=== PATIENT | female | born 1965 | race Caucasian/White ===

== ENCOUNTER 2017-11-04 09:25 | Outpatient (RCR) | payer BC, SELFPAY ==
--- NOTE | 2017-11-04 10:40 | HMH.PTOPEV ---
Rehab Outpatient Evaluation Rehab OP Evaluation Start: 11/04/17 10:26 Freq: Status: Active Protocol: Document 11/04/17 10:26 RMARSHALL (Rec: 11/04/17 10:39 [facility] [id number]) Electronically Signed By Mackenzie Ndiaye OT 11/04/17 10:26 Outpatient Therapy Subjective History Subjective History Pt is a 52 year old female who reports to therapy for initial evaluation to L wrist. Pt was dx with carpal tunnel in left wrist in August of 2017. Pt reports she wears a L wrist cock up splint at night, but continues to have pain and numbness/tingling in left hand/fingers. Pt works at [employer] and her job duties require a significant amount of typing and writing. Pt demonstrates with decreased AROM in left wrist; strength is slightly decreased. Pt will continue to be seen in order to address these deficits. Chief Complaint Pain Stiff Symptom Type Ache Throb Sharp Numbness Tingling Shooting Symptoms Relieved By Nothing Symptoms Aggravated By Physical Activity Lifting Prior Functional Limitations None Current Functional Limitations Reaching Lifting Housework Desk Work/Reading Sleeping Recreation Activity Symptom Description Intermittent Activity Dependent Level of pain today (0-10) 4 Pain scale - at its best (0-10) 2 Pain scale - at its worst (0-10) 8 Wrist/Hand Eval Palpation Tenderness/Visual Exam Wrist pain left tenderness wrist exam standard left Wrist/Hand Palpation Findings Tenderness Wrist Range of Motion Wrist Extension Active Range of Motion ( 28 degrees) Wrist Flexion Active Range of Motion ( 45 degrees) Wrist Radial Deviation Active Range of 10 Motion (degrees) Wrist Ulnar Deviation Active Range of 10 Motion (degrees)
== END 2017-11-04 09:26 | disposition home or self-care (01) ==
LOC: OT 09:25
PROVIDERS: PCP Nurse Practitioner; Visit Provider Family Medicine
DX: G56.02 Carpal tunnel syndrome, left upper limb (principal)
CPT/HCPCS: 97035; 97140; 97165

== ENCOUNTER → 2017-12-04 12:40 | Outpatient (CLI) | payer BC, SELFPAY ==
--- NOTE | 2017-12-04 13:07 | MM_ITS ---
MM Dig mamm BI DX w/CAD, US breast RT complete, US breast LT complete COMPARISON: 05/21/2017, 06/03/2017 INDICATION: Follow-up abnormal mammogram ORDERING PHYSICIAN: See Davenport MD PATIENT AGE: 52 years TECHNIQUE: Standard images performed lungs problem-solving views. FINDINGS: Right mammogram: Multiple nodular opacity some of which contain coarse calcifications consistent with fibroadenomas.. The nodule in the upper outer aspect of the right breast measuring approximately 9 mm is not significant changed. Calcified nodules are unchanged. There is a benign-appearing 5 mm nodular density in the retroareolar region which is unchanged and may be due to small cyst. Left breast: Asymmetric density in the lateral aspect of the left breast appears to compress out as fibroglandular tissue. Benign-appearing nodules are present in the axilla. Right breast ultrasound with axilla: 5 mm hypoechoic nodule at 6:00 near the nipple. 1 x 0.7 cm hypoechoic nodule with enhanced through transmission of sound at 10:00 once again noted unchanged and may be due to a fibroadenoma and is stable mammographically dating back to 08/27/2012. 5 mm hypoechoic nodule behind the nipple Left breast ultrasound: Scattered hypoechoic areas some which may be due to fibroglandular tissue and small cyst. These are not significantly changed.. 4 mm hypoechoic nodule at 12:00, 5 amount hypoechoic nodule at 2:00, 4 mm hypoechoic nodule 1:00. No suspicious masses evident IMPRESSION: No evidence of malignancy. Overall stable appearance of the breast mammographically and sonographically BI-RADS Category: 2 Benign Finding(s) RECOMMENDED FOLLOW-UP: 6M - 6 MONTH FOLLOW-UP Recommend screening mammogram bilaterally in 6 months (A letter has been sent to the patient regarding results of the study.)
== END ==
PROVIDERS: PCP Family Medicine; Visit Provider Family Medicine
DX: Z09 Encounter for follow-up examination after completed treatment for conditions other than malignant neoplasm (principal)
CPT/HCPCS: 76641; 77066

== ENCOUNTER → 2018-11-27 15:20 | Outpatient (CLI) | payer BC, SELFPAY ==
--- NOTE | 2018-11-27 15:47 | MM_ITS ---
MM Dig screening mamm BI w/CAD CAD Screening COMPARISON: Digital mammograms with CAD 05/21/2017 and additional views of each breast 06/03/2017 and digital mammograms with CAD 12/04/2017 INDICATION: There is a history of breast cancer in 2 sisters one diagnosed at age 49 the other at age 70 TECHNIQUE: Standard CC and MLO images were obtained. R2 CAD reviewed. FINDINGS: Diffuse heterogenic fibroglandular densities are seen in each breast. There are stable nodular densities in each breast along with stable benign-appearing micro and macrocalcifications. The stable nodular densities are likely fibroadenomas as suggested previously. There are mole markers on each breast. There is no new or suspicious lesion in either breast. IMPRESSION: Heterogenic breast parenchyma somewhat lessening the sensitivity mammography with the findings are stable BI-RADS Category: 2 Benign Finding(s) RECOMMENDED FOLLOW-UP: 1YR - 1 YEAR FOLLOW-UP (A letter has been sent to the patient regarding results of the study.)
== END ==
PROVIDERS: PCP Family Medicine; Visit Provider Family Medicine
DX: Z12.31 Encounter for screening mammogram for malignant neoplasm of breast (principal)
CPT/HCPCS: 77067

== ENCOUNTER → 2019-06-21 16:07 | Outpatient (CLI) | payer BC, SELFPAY ==
--- NOTE | 2019-06-21 16:11 | XR_ITS ---
PROCEDURE: XR SHOULDER RT MIN 2V CLINICAL INDICATION: RT SHOULDER PAIN Pain, decreased range of motion COMPARISON: No exams were available for comparison FINDINGS: Mild osteoarthritic changes are present at the acromioclavicular joint and glenohumeral joint with subacromial stenosis. No fracture or dislocation. No lytic or blastic change IMPRESSION: Osteoarthritis with subacromial stenosis Dictated by: Vasquez Garcia MD 06/22/2019 07:09 Electronically signed by Vasquez Garcia MD in [place] 06/22/2019 07:09
== END ==
PROVIDERS: PCP Family Medicine; Visit Provider Family Medicine
DX: M25.511 Pain in right shoulder (principal)
CPT/HCPCS: 73030

== ENCOUNTER → 2019-12-10 07:32 | Outpatient (CLI) | payer BC, SELFPAY ==
--- NOTE | 2019-12-10 08:00 | MM_ITS ---
PROCEDURE: MM DIG SCREENING MAMM BI W/CAD CLINICAL INDICATION: SCREENING There is a history of breast cancer patient's 2 sisters both diagnosed before menopause. COMPARISON: [facility] DIG MAMM- ABIEL ADD VIEWS W/CAD from 06/03/2017 [facility] MM Dig mamm BI DX w/CAD from 12/04/2017 [facility] MM Dig screening mamm BI w/CAD from 11/27/2018 TECHNIQUE: Standard CC and MLO images and 3D Tomosynthesis was obtained. R2 CAD reviewed. FINDINGS: Mild to moderate fibroglandular densities are seen in the central portions of both breasts. There are stable nodular appearing densities with smooth borders in each breast. There is a mole marker right breast. There are 2 stable areas of micro and right breast. Kirby images were reviewed and are helpful confirming the stability of the benign-appearing nodular densities in each breast. There is no new or suspicious lesion in either breast and no suspicious microcalcifications. IMPRESSION: Stable exam with no suspicious lesions seen BI-RAD Category: 2 Benign Finding(s) FOLLOW-UP: 1YR 1 Year Follow-up (A letter has been sent to the patient regarding results of the study.) Dictated by: Dr. Piotr Griffith MD 12/14/2019 14:[address] Piotr Griffith MD in [place] 12/14/2019 14:07
== END ==
PROVIDERS: PCP Family Medicine; Visit Provider Family Medicine
DX: Z12.31 Encounter for screening mammogram for malignant neoplasm of breast (principal)
CPT/HCPCS: 77063; 77067

== ENCOUNTER → 2020-09-27 13:22 | Outpatient (CLI) | payer BC, SELFPAY ==
--- NOTE | 2020-09-27 13:24 | XR_ITS ---
PROCEDURE: XR WRIST RT MIN 3V CLINICAL INDICATION: RT wrist pain/ CTS COMPARISON: No exams were available for comparison FINDINGS: No fracture or dislocation. No lytic or blastic change. There is normal mineralization. Severe osteoarthritic changes are present at the 1st metacarpal-carpal joint with lateral subluxation of the 1st metacarpal. Other findings:There is an extra ossicle along the lateral aspect and mid aspect of the scaphoid and there is mild exostosis along the distal and lateral aspect of the scaphoid. IMPRESSION: 1. Severe osteoarthritis of the 1st metacarpal carpal joint with lateral subluxation of the 1st metacarpal 2. Exostosis with extra ossicle along the lateral and distal aspect of the scaphoid Dictated by: Vasquez Garcia MD 09/27/2020 16:07 Vasquez Garcia MD in [place] 09/27/2020 16:07
== END ==
PROVIDERS: PCP Family Medicine; Visit Provider Orthopaedic Surgery
DX: M25.531 Pain in right wrist (principal)
CPT/HCPCS: 73110

== ENCOUNTER → 2020-11-28 10:07 | Outpatient (CLI) | payer BC, SELFPAY ==
--- NOTE | 2020-11-28 10:21 | XR_ITS ---
PROCEDURE: XR CHEST 2V CLINICAL HISTORY: preop; smoker COMPARISON: No exams were available for comparison FINDINGS: There are 2 nodular densities in or overlying the Left lung. Subtle increased right medial basilar lung markings are present. Further evaluation with chest CT is recommended. There are no pleural effusions. Pulmonary vasculature is normal. Mediastinal and cardiac silhouette are normal. There are scattered areas of minimal degenerative change in the spine. IMPRESSION: Increased markings in the right lung base and 2 nodular densities in the left lung. Chest CT without contrast recommended for further evaluation. Dictated by: Elsa Alvarado MD 11/28/2020 10:54 Elsa Alvarado MD in [place] 11/28/2020 10:54
[2020-11-28 11:05] LABS: Chloride 103 mmol/L (98-107)
[2020-11-28 11:06] LABS: Potassium 4.3 mmoL/L (3.5-5.1); Sodium 137 mmol/L (136-145)
[2020-11-28 11:07] LABS: Basophils # 0.1 K/mm3 (0-0.2); Basophils % 1.1 % (0.1-2.0); Eosinophils # 0.3 K/mm3 (0.0-0.4); Eosinophils % 3.6 % (0.1-12.0); Hematocrit 48.3 % (37.0-47.0); Hemoglobin 15.7 g/dL (12.2-16.2); Lymphocytes # 3.5 K/mm3 (0.7-4.5); Lymphocytes % 41.5 % (10-50); Mean Corpuscular HGB Conc 32.5 g/dL (31.8-35.4); Mean Corpuscular Hemoglobin 30.3 pg (27.0-31.2); Mean Corpuscular Volume 93.3 fl (81-99); Monocytes # 0.5 K/mm3 (0.1-1.0); Monocytes % 5.4 % (1.7-9.3); Neutrophils # 4.1 K/mm3 (1.8-7.8); Neutrophils % 48.5 % (37.0-80.0); Platelet Count 353 K/mm3 (142-424); Red Blood Count 5.17 M/mm3 (4.20-5.40); Red Cell Distribution Width 13.7 % (11.5-17.5); White Blood Count 8.4 K/mm3 (4.8-10.8)
[2020-11-28 11:09] LABS: Alanine Aminotransferase 37 U/L (12-78); Albumin Level 4.6 g/dl (3.5-5.0); Albumin/Globulin Ratio 1.4 (1.1-1.8); Alkaline Phosphatase 129 U/L (38-126); Anion Gap 11.3 mEq/L (5-15); Aspartate Amino Transferase 29 U/L (14-36); Bilirubin,Total 0.5 mg/dl (0.2-1.3); Blood Urea Nitrogen 8 mg/dl (7-17); Calcium 10.1 mg/dl (8.4-10.2); Carbon Dioxide 27 mmol/L (22.0-30.0); Estimated Glomerular Filt Rate 127 ml/min (>60); GFR (African American) 154 ML/MIN (>60); Globulin 3.4 g/dL (1.3-3.2); Glucose 105 mg/dl (74-100)
[2020-11-28 12:02] LABS: Coronavirus 19 IgG Antibody Negative (Negative)
[2020-11-28 12:03] LABS: Coronavirus 19 IgM Antibody Positive (Negative)
== END ==
PROVIDERS: PCP Family Medicine; Visit Provider Orthopaedic Surgery
DX: Z01.818 Encounter for other preprocedural examination (principal); Z20.822 Contact with and (suspected) exposure to COVID-19; Z86.16 Personal history of COVID-19; G56.01 Carpal tunnel syndrome, right upper limb; M18.11 Unilateral primary osteoarthritis of first carpometacarpal joint, right hand
CPT/HCPCS: 36415; 71046; 80053; 85025; 86328; U0003

== ENCOUNTER 2020-11-30 07:01 | Day surgery (SDC) | payer BC, SELFPAY ==
[2020-11-28 09:40] VITALS: BMI 28.0
[2020-11-30 07:35] VITALS: BP 152/62; PULSE 91; RESP 18; TEMP 37.2; O2SAT 95
--- NOTE | 2020-11-30 10:22 | HMH.ANESCL ---
[facility] Anesthesia Checklist - Patient Identification Patient Identification: Arm Band - Structural Data Admitted From: Home Planned Operative Procedure/s: Right CTR Consent for Planned Operative Procedure(s) Verified: Yes Verified Documents: Surgical Consent, History and Physical - NPO Status Verified Time NPO: 00:00 - Additional verifications Anesthesia Reactions: No Hx Blood Transfusions: No Blood Transfusion Reaction: No - Airway Assessment C-Spine Mobility Assessed: Yes (mp2) TMJ Mobility Assessed: Yes Dentition: Edentulous - Neurological Assessment Level of Consciousness: Awake, Alert - Anesthesia Plan Anesthesia Risk discussed: Yes Anesthesia Plan: Verified ASA Class: II Anesthesia Type: MAC w/Block (supraclavicular- risks/benefits explained. Pt verbalizes understanding) [facility] History I have reviewed the patient's past medical history: Yes Medical History: Reports:: Hyperlipidemia Denies:: Cancer, Diabetes Mellitus Type 1, Diabetes Mellitus Type 2, Internal Pacemaker, MRSA, Seizures *Have you ever received a pneumonia vaccine?: No *Have you received a flu vaccine this season?: Yes Other Medical History: Reports: Arthritis. Denies: Blood Transfusion Reaction Anesthesia experience/problems:: nac Other Surgeries: Yes: Other. No: Pacemaker Amputation: Yes (left aka) Fractures: No - *Social History Last grade of school completed: Some college Smoking Status: Current every day smoker Tobacco Type: cigarettes # Packs/Day (cigarettes): 1 Alcohol Intake: never Alcohol Intake Frequency:: holidays/special occasions only Substance Use Type: denies use *Occupational Status:: employed Housing: house Household Members: spouse *Travel in the last 8 weeks: None Family Hx:: No significant family history
[2020-11-30 10:33] VITALS: BP 89/57; PULSE 82; RESP 18; TEMP 36.5; O2SAT 92
[2020-11-30 10:43] VITALS: BP 93/60; PULSE 83; RESP 18; O2SAT 93
[2020-11-30 10:59] VITALS: BP 95/76; PULSE 79; RESP 18; O2SAT 93
[2020-11-30 11:08] VITALS: BP 107/65; PULSE 78; RESP 18; O2SAT 93
[2020-11-30 12:32] VITALS: TEMP 43
--- NOTE | 2020-11-30 12:42 | HMH.OPNOTE ---
Date of procedure: 11/30/20 Pre-op Diagnosis:: Carpal tunnel syndrome, right wrist Post-op Diagnosis:: Same Procedure performed:: Open carpal tunnel release, right wrist Surgeon:: Leonel Mann MD [employer] Pulper(s):: Shahnaz Hendricks ECOLOGICAL ECONOMIST:: Toy Mcgarry Anesthesia: MAC, regional (Supraclavicular nerve block) Estimated blood loss (mL): 2 Clinical Note:: Patient is a 55-year-old female with right carpal tunnel syndrome with long-standing symptoms.. Patient is having significant and disabling symptoms and has failed to respond adequately to conservative management.] EMG/NCV studies confirmed moderate moderate carpal tunnel syndrome on the RIGHT side. Therefore, carpal tunnel release surgery is necessary to relieve symptoms, preserve the remaining fibers of the median nerve, improve function and decrease the pain, paresthesias and weakness and to prevent permanent nerve damage. Please refer to my office note for full details. Operative findings:: The intraoperative findings showed the median nerve to be tightly compressed and hyperemic. The flexor retinaculum was noted to be thick and tight. There was mild synovitis in the carpal tunnel. There was no evidence of any space-occupying lesions within the carpal tunnel. Operative note:: On the day of the surgery the patient was met in the preoperative area. Patient was positively identified and the operative site was marked and initialed by me. A physical examination was performed and the chart was updated. I again discussed the procedure, risks and benefits and alternatives with the patient. The complications discussed include but are not limited to- bleeding, injury to nerves, blood vessels and tendons, infection, wound dehiscence, incomplete relief/continued pain, persistent numbness, palmar hypersensitivity, pillar pain, DVT/PE, complex regional pain syndrome(CRPS), worsening of nerve damage, failure of the condition to improve, incomplete return of function, bowstringing of tendons, weakness of collar feller strength, recurrence, failure of the surgery to accomplish the desired goals, decreased use of the hand, loss of use of the arm, loss of the hand or arm, loss of life. Likely need for further surgery in the future has been discussed. I've indicated to the patient where the proposed incision would be made and also discussed the possibility of extending the incision if needed to accomplish an effective release. We have discussed how the goal of surgery is to protect the fibers which have remained healthy and hopefully reverse the symptoms of the fibers which are compromised but still recoverable. We have explained that, fibers that are permanently damaged will not recover. Patient asked appropriate questions and all have been answered by me. Patient wished to proceed with the surgery. Patient understood the risks, agreed to proceed with surgery, and no guarantees or assurances were given or implied. The patient was brought to the operating room and placed supine on the operating table. The right upper extremity was placed over a side table. All the bony prominences were well-padded. The patient had a MAC anesthesia and supraclavicular nerve block administered by the communications professor. A well-padded tourniquet cuff was placed over the upper arm. The right upper extremity was prepped and draped in the usual sterile fashion. A preprocedure timeout was performed as per hospital policy. The skin incision was marked using the Vitale's landmarks, just ulnar to the thenar crease. The limb was exsanguinated with the Esmarch bandage and tourniquet was inflated to 250 mmHg. Please see nursing records for the total tourniquet time. Vitale's landmarks were utilized and a skin incision was made parallel and just ulnar to the thenar crease with a 15 blade. Blunt tissue dissection was carried through the subcutaneous tissue down to the palmar fascia. The palmar fascia was incised with the knife to reveal the transverse carpal ligament. The transve
== END 2020-11-30 11:15 | disposition home or self-care (01) ==
PROVIDERS: PCP Family Medicine; Visit Provider Orthopaedic Surgery
PROC: (CPT 64721; principal; 2020-11-30 09:00)
DX: G56.01 Carpal tunnel syndrome, right upper limb (principal)
CPT/HCPCS: 64721; 96374; J0670

== ENCOUNTER → 2021-06-27 16:28 | Outpatient (CLI) | payer BC, SELFPAY | PROVIDERS: Visit Provider Family Medicine | DX: U07.1 COVID-19 (principal) | CPT/HCPCS: C9803; U0003; U0005 ==

== ENCOUNTER → 2023-04-02 07:58 | Outpatient (CLI) | payer BC, SELFPAY ==
--- NOTE | 2023-04-02 08:03 | MM_ITS ---
PROCEDURE INFORMATION: Exam: MG Bilateral Screening 3D Mammography Exam date and time: 04/02/2023 8:08 AM Age: 57 years old Clinical indication: Screening examination TECHNIQUE: Imaging protocol: Bilateral Screening tomosynthesis and 2D mammography including computer-aided detection (CAD) when performed. COMPARISON: 1. MG MM DIG SCREENING MAMM BI W/CAD 12/10/2019 8:07 AM 2. MG [facility] MM Dig screening mamm BI w/CAD 11/27/2018 3:56 PM FINDINGS: MAMMOGRAPHY: Breast composition: The breasts are heterogeneously dense, which may obscure small masses. Mass: None. Architectural distortion: None. Calcifications: No suspicious calcifications. Asymmetric density: None. Skin thickening: None. Axillary adenopathy: None. IMPRESSION: No mammographic evidence of malignancy. Annual screening is recommended unless otherwise clinically indicated. ASSESSMENT: BI-RADS Category 1: Negative
== END ==
PROVIDERS: PCP Family Medicine; Visit Provider Family Medicine
DX: Z12.31 Encounter for screening mammogram for malignant neoplasm of breast (principal)
CPT/HCPCS: 77063; 77067

== ENCOUNTER 2024-02-27 13:38 | Emergency (ER) | payer BC, SELFPAY ==
[2024-02-27] VITALS (8 sets, daily range): BP systolic 133–171; BP diastolic 65–109; PULSE 80–101; RESP 15–24; TEMP 37.1; O2SAT 90–99; BMI 28.0
--- NOTE | 2024-02-27 13:42 | ECG_ITS ---
APPROVED REPORT Exam: Resting ECG HR:104 bpm ECG Measurements Heart Rate 104 AXES AZ 129 P 71 QRSd 81 QRS 71 QT 320 T 71 QTc 381 Conclusion SINUS TACHYCARDIA NONSPECIFIC ST & T-WAVE ABNORMALITY ABNORMAL RHYTHM ECG UNCONFIRMED REPORT Electronically signed by : JOHN TUBBS, 02/28/2024 06:01:44
--- NOTE | 2024-02-27 13:50 | ED_ITS ---
Discharge Plan Disposition Patient Disposition: Home, Self-Care Condition: Good Prescriptions Prescriptions: New ipratropium-albuterol 0.5 mg-3 mg(2.5 mg base)/3 mL solution for nebulization 3 ml inhalation Q4H PRN (Reason: shortness of breath) Qty: 90 0RF Rx Instructions: until breathing returns to target peak flow/parameters doxycycline hyclate 100 mg tablet 100 mg PO BID 10 Days Qty: 20 0RF prednisone 50 mg tablet 50 mg PO DAILY 5 Days Qty: 5 0RF No Action atorvastatin 20 mg tablet 20 mg PO DAILY Referrals Follow up/Referrals: Provider,Referral, [Primary Care Provider] - See instructions Activity Restrictions/Add. Instructions Additional Instructions/Restrictions: You were evaluated in the emergency department today. Please picker feeder your prescriptions at the pharmacy and take them as prescribed. Follow-up closely with your primary care provider. Return to the emergency department for new or worsening symptoms. Clinical Impressions Clinical Impression: Acute exacerbation of chronic obstructive pulmonary disease Instructions Patient Instructions: DI for Chronic Obstructive Pulmonary Disease Discharge ED Provider: Shahnaz Coats General Adult HPI <Pj Hinton MD - Last Filed: 02/27/24 16:52> General Chief complaint: Chest Pain Stated complaint: Chest Pain Time Seen by Provider: 02/27/24 13:50 History of Present Illness HPI narrative: The patient presents today with difficulty breathing, which has been a recurring issue. She describes the sensation as if somebody's putting a plug inside my throat. This issue started intensifying last weekend, but the patient notes a history of breathing difficulties for a couple of years since having COVID. She also mentions a history of pneumonia and bronchitis, with the most recent bronchitis episode believed to be in October. The chest pain is located in her substernal area, nonradiating, nonpleuritic, nonexertional, exacerbated by coughing. No associated fevers or chills. No known sick contacts. Additionally, the patient reports coughing up a significant amount of mucus and experiencing chest pain that started this morning, which she attributes to the severe coughing. She expresses concern about her inhaler usage, noting that she uses it several times daily and is worried about running out before she can get a refill. Please note that above description of symptoms, in this electronic medical record under categorization of recalled from ER triage doctor by RN are reflective of an initial nursing assessment, however, is not reflective of my full history and physical exam that was personally taken and clarified. Consequentially, this preceding description of symptoms, which may include the patient's categorized chief complaint in the EMR, do not reflect my personal clinical impression, and the ultimate description of history of present illness and patient stated complaints should be deferred to this section of the note. Unless stated otherwise or congruent with this section of the note, additional signs, symptoms, or incongruence should be interpreted as inaccurate with my clinical impression. Related Data Home Medications Medication Instructions Recorded Confirmed atorvastatin 20 mg tablet 20 mg PO DAILY Cholesterol 09/27/20 12/13/20 Previous Rx's Medication Instructions Recorded doxycycline hyclate 100 mg tablet 100 mg PO BID 10 days #20 tabs 02/27/24 ipratropium 0.5 mg-albuterol 3 mg 3 ml inhalation Q4H PRN shortness 02/27/24 (2.5 mg base)/3 mL nebulization of breath #90 mL soln prednisone 50 mg tablet 50 mg PO DAILY 5 days #5 tabs 02/27/24 Allergies Allergy/AdvReac Type Severity Reaction Status Date / Time Penicillins Allergy hives Verified 12/13/20 10:19 [facility] <Pj Hinton MD - Last Filed: 02/27/24 16:52> [facility] Disclaimer: The information contained in this section may have been updated after the patient was seen, as this information can be updated by other users. Social History Smoking Status: Current every day smoker tobacco type: cigarettes packs per day: 1 second hand exposure: Yes alcohol intake: never substance use type: denies use current occupational status: employed Travel in the last 8 weeks: None household members: spouse housing: house current occupation: [employer] current occupational exposures/hazards: No caffeine: Yes <Pj Hinton MD - Last Filed: 02/27/24 16:52> ROS Obtained: Yes other As per HPI Physical Exam <Pj Hinton MD - Last Filed: 02/27/24 16:52> General General appearance: alert and in no apparent distress Head Head exam: atraumatic and normocephalic Eye Eye exam: Present normal appearance Neck Neck exam: Present normal inspection Chest Chest inspection: Present normal inspection and symmetric chest wall rise Respiratory Respiratory exam: Present wheezes and prolonged expiratory phase; Absent respiratory distress Cardiovascular Cardiovascular exam: Present regular rate and normal rhythm Abdominal Exam Abdominal exam: Present soft Neurological Exam Neurological exam: Present alert and oriented X3 Psychiatric Psychiatric exam: Present normal affect and normal mood Skin Skin exam: Present warm and dry Medical Decision Making <Pj Hinton MD - Last Filed: 02/27/24 16:52> Medical Records Medical records reviewed: Yes I reviewed the patient's medical records. Jorge Inquiry Pt receiving controlled substance: No Vital Signs: 02/27/24 13:39 02/27/24 14:00 02/27/24 14:31 Temperature 98.7 F Temperature Source Oral Pulse Rate 101 H 95 H Pulse Rate [Right Radial] 95 H Respiratory Rate 20 22 24 Blood Pressure 155/80 H 158/109 H Blood Pressure [Right Arm] 171/84 H Blood Pressure Mean 125 Blood Pressure Mean [Right Arm] 113 Blood Pressure Source Blood Pressure Source [Right Arm] Automatic Cuff Blood Pressure Position Blood Pressure Position [Right Arm] Supine 02 Sat by Pulse Oximetry 90 L 91 L 91 L Oxygen Delivery Method Room Air Room Air 02/27/24 15:00 02/27/24 15:30 02/27/24 16:00 Temperature Temperature Source Pulse Rate 90 100 H Pulse Rate [Right Radial] Respiratory Rate 18 17 15 Blood Pressure 152/89 H 153/84 H 133/65 Blood Pressure [Right Arm] Blood Pressure Mean Blood Pressure Mean [Right Arm] Blood Pressure Source Blood Pressure Source [Right Arm] Blood Pressure Position Blood Pressure Position [Right Arm] 02 Sat by Pulse Oximetry 99 97 96 Oxygen Delivery Method Room Air Room Air Room Air 02/27/24 16:30 02/27/24 17:38 Temperature 98.7 F Temperature Source Oral Pulse Rate 91 H 80 Pulse Rate [Right Radial] Respiratory Rate 18 18 Blood Pressure 133/82 144/85 H Blood Pressure [Right Arm] Blood Pressure Mean 88 Blood Pressure Mean [Right Arm] Blood Pressure Source Automatic Cuff Blood Pressure Source [Right Arm] Blood Pressure Position Sitting Blood Pressure Position [Right Arm] 02 Sat by Pulse Oximetry 92 L Oxygen Delivery Method Room Air Lab Data Lab Results 02/27/24 13:43: WBC 12.6 H, RBC 5.20, Hgb 16.2, Hct 48.6 H, MCV 93.4, MCH 31.1, MCHC 33.3, RDW 14.1, Plt Count 385, MPV 8.1, Neut % (Auto) 64.3, Lymph % (Auto) 24.5, [place] % (Auto) 5.3, Eos % (Auto) 4.8, Baso % (Auto) 1.1, Neut # (Auto) 8.1 H, Lymph # (Auto) 3.1, [place] # (Auto) 0.7, Eos # (Auto) 0.6 H, Baso # (Auto) 0.1, Sodium 136, Potassium 4.2, Chloride 102, Carbon Dioxide 27, Anion Gap 11.2, BUN 8, Creatinine 0.70, Estimated Creat Clear 97, Estimated GFR 85, Est GFR ( Amer) 103, Glucose 114 H, Calcium 9.5, Total Bilirubin 0.2, AST 35, ALT 42, A lkaline Phosphatase 137 H, Troponin I < 0.01, Total Protein 7.9, Albumin 4.1, G lobulin 3.8 H, Albumin/Globulin Ratio 1.1, Lipase 82 02/27/24 16:55: Troponin I < 0.01 02/27/24 13:43 02/27/24 13:43 Orders (Tests/Meds): ED MEDICATIONS Discontinued Medications Generic Name Dose Route Start Last Admin Trade Name Freq PRN Reason Stop Dose Admin Albuterol/Ipratropium 3 ml 02/27/24 14:48 02/27/24 14:53 Ipratropium/Albuterol 3 Ml Neb IH 02/27/24 14:49 3 ml ONCE ONE Administration Methylprednisolone Sodium Succinate 40 mg 02/27/24 14:48 02/27/24 14:53 Methylprednisolone Sod Succ 40mg Vial IV 02/27/24 14:49 40 mg ONCE ONE Administration ORDERS Category Date Time Status XR chest portable Stat Exams 02/27/24 14:21 Completed CBC w/Auto Diff [Complete Blood Count Auto Diff] Stat Lab 02/27/24 13:43 Completed CMP [Comprehensive Metabolic Panel] Stat Lab 02/27/24 13:43 Completed Lipase Stat Lab 02/27/24 13:43 Completed Troponin I Q3H Lab 02/27/24 13:43 Completed Troponin I Q3H Lab 02/27/24 16:55 Completed HEART Score History (anamnesis): Slightly suspicious ECG: Non-specific disturbance Age: 45-65 years Risk factors: 1-2 risk factors Troponin: </= normal limit HEART Score: 3 Medical Decision Narrative: Patient with history and exam per above presenting for evaluation of chest pain, shortness of breath Diagnoses considered include COPD exacerbation, pleural effusion pneumonia, ACS, anemia ED workup and treatment included: CBC, CMP, lipase, troponin, chest x-ray, DuoNeb, Solu-Medrol, Labs were independently interpreted by me, significant for no acute finding outside of leukocytosis 12.6 Imaging and second troponin pending at this time. Care was transferred to incoming physician. <Shahnaz Coats, DO - Last Filed: 02/27/24 23:19> Vital Signs: 02/27/24 13:39 02/27/24 14:00 02/27/24 14:31 Temperature 98.7 F Temperature Source Oral Pulse Rate 101 H 95 H Pulse Rate [Right Radial] 95 H Respiratory Rate 20 22 24 Blood Pressure 155/80 H 158/109 H Blood Pressure [Right Arm] 171/84 H Blood Pressure Mean 125 Blood Pressure Mean [Right Arm] 113 Blood Pressure Source Blood Pressure Source [Right Arm] Automatic Cuff Blood Pressure Position Blood Pressure Position [Right Arm] Supine 02 Sat by Pulse Oximetry 90 L 91 L 91 L Oxygen Delivery Method Room Air Room Air 02/27/24 15:00 02/27/24 15:30 02/27/24 16:00 Temperature Temperature Source Pulse Rate 90 100 H Pulse Rate [Right Radial] Respiratory Rate 18 17 15 Blood Pressure 152/89 H 153/84 H 133/65 Blood Pressure [Right Arm] Blood Pressure Mean Blood Pressure Mean [Right Arm] Blood Pressure Source Blood Pressure Source [Right Arm] Blood Pressure Position Blood Pressure Position [Right Arm] 02 Sat by Pulse Oximetry 99 97 96 Oxygen Delivery Method Room Air Room Air Room Air 02/27/24 16:30 02/27/24 17:38 Temperature 98.7 F Temperature Source Oral Pulse Rate 91 H 80 Pulse Rate [Right Radial] Respiratory Rate 18 18 Blood Pressure 133/82 144/85 H Blood Pressure [Right Arm] Blood Pressure Mean 88 Blood Pressure Mean [Right Arm] Blood Pressure Source Automatic Cuff Blood Pressure Source [Right Arm] Blood Pressure Position Sitting Blood Pressure Position [Right Arm] 02 Sat by Pulse Oximetry 92 L Oxygen Delivery Method Room Air Lab Data Lab Results 02/27/24 13:43: WBC 12.6 H, RBC 5.20, Hgb 16.2, Hct 48.6 H, MCV 93.4, MCH 31.1, MCHC 33.3, RDW 14.1, Plt Count 385, MPV 8.1, Neut % (Auto) 64.3, Lymph % (Auto) 24.5, [place] % (Auto) 5.3, Eos % (Auto) 4.8, Baso % (Auto) 1.1, Neut # (Auto) 8.1 H, Lymph # (Auto) 3.1, [place] # (Auto) 0.7, Eos # (Auto) 0.6 H, Baso # (Auto) 0.1, Sodium 136, Potassium 4.2, Chloride 102, Carbon Dioxide 27, Anion Gap 11.2, BUN 8, Creatinine 0.70, Estimated Creat Clear 97, Estimated GFR 85, Est GFR ( Amer) 103, Glucose 114 H, Calcium 9.5, Total Bilirubin 0.2, AST 35, ALT 42, A lkaline Phosphatase 137 H, Troponin I < 0.01, Total Protein 7.9, Albumin 4.1, G lobulin 3.8 H, Albumin/Globulin Ratio 1.1, Lipase 82 02/27/24 16:55: Troponin I < 0.01 Orders (Tests/Meds): ED MEDICATIONS Discontinued Medications Generic Name Dose Route Start Last Admin Trade Name Freq PRN Reason Stop Dose Admin Albuterol/Ipratropium 3 ml 02/27/24 14:48 02/27/24 14:53 Ipratropium/Albuterol 3 Ml Neb IH 02/27/24 14:49 3 ml ONCE ONE Administration Methylprednisolone Sodium Succinate 40 mg 02/27/24 14:48 02/27/24 14:53 Methylprednisolone Sod Succ 40mg Vial IV 02/27/24 14:49 40 mg ONCE ONE Administration ORDERS Category Date Time Status XR chest portable Stat Exams 02/27/24 14:21 Completed CBC w/Auto Diff [Complete Blood Count Auto Diff] Stat Lab 02/27/24 13:43 Completed CMP [Comprehensive Metabolic Panel] Stat Lab 02/27/24 13:43 Completed Lipase Stat Lab 02/27/24 13:43 Completed Troponin I Q3H Lab 02/27/24 13:43 Completed Troponin I Q3H Lab 02/27/24 16:55 Completed HEART Score HEART Score: 3 Medical Decision Narrative: Patient with history and exam per above presenting for evaluation of chest pain, shortness of breath Diagnoses considered include COPD exacerbation, pleural effusion pneumonia, ACS, anemia ED workup and treatment included: CBC, CMP, lipase, troponin, chest x-ray, DuoNeb, Solu-Medrol, Labs were independently interpreted by me, significant for no acute finding outside of leukocytosis 12.6 Imaging and second troponin pending at this time. Care was transferred to incoming physician. Jorge L DO: On my assessment of the patient, she is resting comfortably on room air with no increased work of breathing. Labs without acute concerning abnormalities including troponins negative x 2. At this time, feel that she is appropriate for discharge home with treatment of COPD exacerbation. She was given prescriptions for prednisone, doxycycline, and nebulizer refills. She was discharged with instructions for close follow-up with her primary care provider and strict return precautions. Critical Care <Pj Hinton MD - Last Filed: 02/27/24 16:52> Critical Care Time Critical Care Time: No
--- NOTE | 2024-02-27 13:50 | PC.NURSE ---
preformed EKG and connected pt to telle. Oriented pt of call light. Nurse in room now starting IV
--- NOTE | 2024-02-27 14:21 | XR_ITS ---
FINAL REPORT CLINICAL HISTORY: chest pain COMPARISON: None FINDINGS: A single portable view of the chest was obtained. The heart size and pulmonary vascularity are within normal limits. The mediastinum is within normal limits. There is mild atelectasis or scar present in the lung bases. The bony thorax is intact. IMPRESSION: Mild atelectasis or scar present in the lung bases. Reviewed, Interpreted and Dictated by Domingo Simons III, MD Transcribed by Lois Abel Authenticated and [facility]
[2024-02-27 14:44] LABS: Basophils # 0.1 K/mm3 (0-0.2); Basophils % 1.1 % (0.1-2.0); Eosinophils # 0.6 K/mm3 (0.0-0.4); Eosinophils % 4.8 % (0.1-12.0); Hematocrit 48.6 % (37.0-47.0); Hemoglobin 16.2 g/dL (12.2-16.2); Lymphocytes # 3.1 K/mm3 (0.7-4.5); Lymphocytes % 24.5 % (10-50); Mean Corpuscular HGB Conc 33.3 g/dL (31.8-35.4); Mean Corpuscular Hemoglobin 31.1 pg (27.0-31.2); Mean Corpuscular Volume 93.4 fl (81-99); Mean Platelet Volume 8.1 fl (7.4-10.4); Monocytes # 0.7 K/mm3 (0.1-1.0); Monocytes % 5.3 % (1.7-9.3); Neutrophils # 8.1 K/mm3 (1.8-7.8); Neutrophils % 64.3 % (37.0-80.0); Platelet Count 385 K/mm3 (142-424); Red Cell Distribution Width 14.1 % (11.5-17.5); White Blood Count 12.6 K/mm3 (4.8-10.8)
[2024-02-27 14:52] LABS: Chloride 102 mmol/L (98-107); Sodium 136 mmol/L (136-145)
[2024-02-27 14:53] LABS: Potassium 4.2 mmoL/L (3.5-5.1)
[2024-02-27] MEDS: IPRATROPIUM/ALBUTEROL 3 ML NEB IH (14:53)
[2024-02-27] MEDS: METHYLPREDNISOLONE SOD SUCC 40MG VIAL 40 MG IV (14:53)
[2024-02-27 14:55] LABS: Alanine Aminotransferase 42 U/L (12-78); Alkaline Phosphatase 137 U/L (38-126); Anion Gap 11.2 mEq/L (5-15); Aspartate Amino Transferase 35 U/L (14-36); Bilirubin,Total 0.2 mg/dl (0.2-1.3); Blood Urea Nitrogen 8 mg/dl (7-17); Carbon Dioxide 27 mmol/L (22.0-30.0); Creatinine Clearance Estimated 97 mL/min (50-200); Estimated Glomerular Filt Rate 85 ml/min (>60); GFR (African American) 103 ML/MIN (>60)
[2024-02-27 14:56] LABS: Albumin Level 4.1 g/dl (3.5-5.0); Albumin/Globulin Ratio 1.1 (1.1-1.8); Calcium 9.5 mg/dl (8.4-10.2); Globulin 3.8 g/dL (1.3-3.2); Glucose 114 mg/dl (74-100); Lipase 82 U/L (23-300); Total Protein,Serum 7.9 g/dl (6.3-8.2)
[2024-02-27 15:37] LABS: Troponin I < 0.01 ng/ml (0.00-0.034)
[2024-02-27 17:25] LABS: Troponin I < 0.01 ng/ml (0.00-0.034)
== END 2024-02-27 17:44 | disposition home or self-care (01) ==
PROVIDERS: Emergency Medicine; Emergency Provider Emergency Medicine
DX: R07.1 Chest pain on breathing (principal); J44.1 Chronic obstructive pulmonary disease with (acute) exacerbation; R00.0 Tachycardia, unspecified; F17.210 Nicotine dependence, cigarettes, uncomplicated
CPT/HCPCS: 71045; 80053; 83690; 84484; 85025; 93005; 96374; 99284

== ENCOUNTER 2025-07-29 12:50 | Outpatient (CLI) | payer BC, SELFPAY ==
--- NOTE | 2025-07-29 12:52 | MM_ITS ---
PROCEDURE INFORMATION: Exam: MG Bilateral Screening 3D Mammography Exam date and time: 07/29/2025 1:06 PM Age: 60 years old Clinical indication: Screening examination TECHNIQUE: Imaging protocol: Bilateral Screening tomosynthesis and 2D mammography including computer-aided detection (CAD) when performed. COMPARISON: 1. MG MM DIG SCREENING MAMM BI W/CAD 04/02/2023 8:08 AM 2. MG MM DIG SCREENING MAMM BI W/CAD 12/10/2019 8:07 AM FINDINGS: MAMMOGRAPHY: Breast composition: There are scattered areas of fibroglandular density. Mass: None. Architectural distortion: None. Calcifications: No suspicious calcifications. Asymmetric density: None. Skin thickening: None. Axillary adenopathy: None. IMPRESSION: No mammographic evidence of malignancy. Annual screening is recommended unless otherwise clinically indicated. ASSESSMENT: BI-RADS Category 1: Negative.
== END 2025-07-29 23:59 | disposition home or self-care (01) ==
LOC: RAD 12:51
PROVIDERS: PCP Family Medicine; Visit Provider Family Medicine
DX: Z12.31 Encounter for screening mammogram for malignant neoplasm of breast (principal); R92.323 Mammographic fibroglandular density, bilateral breasts
CPT/HCPCS: 77063; 77067